=== PATIENT | female | born 1975 | race Caucasian/White ===

== ENCOUNTER 2017-03-10 13:23 | Emergency (ER) | payer OTHER ==
[2017-03-10 13:27] VITALS: BP 137/79; PULSE 96; BMI 28.3
[2017-03-10] MEDS ORDERED: SULFAMETHOXAZOLE/TRIMETHOPRIM 800MG/160MG D.S. TABLET PO ONE (14:28)
--- NOTE | 2017-03-10 14:29 | PDOC ---
History of Present Illness - General Chief Complaint: Rash Stated Complaint: RASH Time Seen by Provider: 03/10/17 14:14 History Source: Patient Exam Limitations: No Limitations - History of Present Illness Initial Comments: 03/10/17 14:42 Patient came for evaluation of tender weeping lesions to pubis area. States suffers from frequent episodes of folliculitis and feels this episode is spreading. Has had multiple infections, dermatitis in the past and has also needed admission for IV antibiotics. Feels is probably been infected with MRSA type infections multiple times. Has recently taken one course of amoxicillin for dental work. Denies fever, but states rash is becoming more extensive and painful. 03/10/17 14:45 Timing/Duration: reports: constant, changing over time, getting worse Respiratory Risk Factors: reports: no cause identified Modifying Factors: improves with: scratching Associated Symptoms: reports: blisters, change in skin texture, swelling/mass/ lumps. denies: fever Past History - Travel Traveled outside of the country in the last 30 days: No Close contact w/someone who was outside of country & ill: No - Past Medical History Allergies/Adverse Reactions: Allergies Allergy/AdvReac Type Severity Reaction Status Date / Time ketorolac tromethamine Allergy Intermediate hives/vomit Verified 03/10/17 13:27 [From Toradol] prochlorperazine edisylate Allergy Mild hives/lock Verified 03/10/17 13:27 [From Compazine] jaw prochlorperazine maleate Allergy Mild hives/lock Verified 03/10/17 13:27 [From Compazine] jaw tramadol Allergy "HIVES AND Verified 03/10/17 13:27 PROFUSE VOMITING" Home Medications: Ambulatory Orders Alprazolam [Xanax] 1 mg PO BID 06/27/15 Pregabalin [Lyrica -] 300 mg PO BID 06/27/15 Quetiapine Fumarate [Seroquel -] 50 mg PO HS 06/27/15 Zolpidem Tartrate [Ambien] 10 mg PO HS 06/27/15 Metoprolol Succinate [Toprol XL -] 25 mg PO DAILY 06/30/15 Budesonide/Formeterol Fumarate [SYMBICORT 160/4.5mcg -] 2 puff IH BID inhaler 07/08/15 Sennosides [Senna -] 1 tab PO BID tablet 07/08/15 Oxycodone Sr [Oxycontin] 20 mg PO BID 08/20/15 Thiamine HCl [Vitamin B1 -] 100 mg PO HS #30 tablet 09/01/15 Albuterol Sulfate Inhaler - [Ventolin HFA Inhaler -] 1 - 2 inh PO Q4H PRN Tiotropium [place] [Spiriva] 1 inh IH DAILY 10/30/15 Methocarbamol [Robaxin -] 500 mg PO TID #21 tablet 11/01/15 Metoclopramide HCl [Reglan] 10 mg PO TID PRN #20 tablet 11/09/15 Acetaminophen 1,000 mg PO Q6H #30 capsule 03/10/17 Sulfamethoxazole/Trimethoprim [Bactrim *Ds*] 1 each PO BID #14 tablet 03/10/17 Anemia: Yes Asthma: Yes Cancer: Yes (Terratoma Tumor age 10y/o) Cardiac Disorders: Yes (Fast Heartbeat on Toprol XL) CVA: No COPD: No CHF: No Dementia: No Diabetes: No GI Disorders: Yes (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) Disorders: Yes (Kidney stone 3 yrs ago) HTN: No Hypercholesterolemia: No Liver Disease: No Psychiatric Problems: Yes (bipolar depression/anxiety) Seizures: No Thyroid Disease: Yes (partial thyroidectomy) - Surgical History Abdominal Surgery: (Benign tumors removed from abdomen as child) Appendectomy: No Cardiac Surgery: No Cholecystectomy: No Lung Surgery: No Neurologic Surgery: No Orthopedic Surgery: (Right done Weds 07/02 and left done 03/23) - Family Disease History Family Disease History: Diabetes: Grandparents, Heart Disease: Grandparents - Immunization History Td Vaccination: Yes TDAP Vaccination: Yes Immunization Up to Date: Yes - Suicide/Smoking/Psychosocial Hx Smoking Status: No Smoking History: Never smoked Have you smoked in the past 12 months: No Number of Cigarettes Smoked Daily: 3 If you are a former smoker, when did you quit?: 06/2015 'Breaking Loose' booklet given: 07/02/15 Hx Alcohol Use: No Drug/Substance Use Hx: No Substance Use Type: None Hx Substance Use Treatment: No Review of Systems - Review of Systems Able to Perform ROS?: Yes Is the patient limited Belarusian proficient: Yes Constitutional: Yes: Symptoms Reported, See HPI, Malaise. No: Fever HEENTM: No: Symptoms Reported Respiratory: No: Symptoms reported Musculoskeletal: No: Symptoms Reported Integumentary: Yes: Symptoms Reported, See HPI, Lesions, Pruritus, Rash Neurological: No: Symptoms reported All Other Systems: Reviewed and Negative *Physical Exam - Vital Signs Last Vital Signs Temp Pulse Resp BP Pulse Ox 96 H 18 137/79 98 03/10/17 13:24 03/10/17 13:24 03/10/17 13:24 03/10/17 13:24 - Physical Exam General Appearance: Yes: Nourished, Appropriately Dressed, Apparent Distress HEENT: positive: SAUL, Normal ENT Inspection, TMs Normal, Pharynx Normal Neck: positive: Supple. negative: Tender, Lymphadenopathy (R), Lymphadenopathy (L) Respiratory/Chest: positive: Lungs Clear, Normal Breath Sounds Cardiovascular: positive: Regular Rate Gastrointestinal/Abdominal: positive: Soft Musculoskeletal: positive: Normal Inspection Extremity: positive: Normal Capillary Refill, Normal Inspection Integumentary: positive: Normal Color, Pale, Other (multiple unroofed maculopapular rashes, consistent with a folliculitis appearance with a secondary infection. 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 We'll treat with Bactrim *DC/Admit/Observation/Transfer Diagnosis at time of Disposition: Folliculitis barbae - Discharge Dispostion Disposition: HOME Condition at time of disposition: Stable Admit: No - Patient Instructions Printed Discharge Instructions: DI for Folliculitis Additional Instructions: Rest, keep cool and dry- avoid strenuous activity or hot /humid environments Less hot showers, no abrasive soaps May use heavy creams like Eucerin or Cetaphil to keep skin moist May apply Aveeno, calamine lotion, [id number] hydrocortisone creams as needed for symptoms May use Benadryl at night for antihistamine, Zyrtec/ Iliana or Claritin for daytime antihistamine use to help with itching Complete all of Bactrim as directed May use bacitracin ointment 3 times a day Followup with PMD in one week if no resolution Make appointment with systems eng for evaluation when possible
[2017-03-10] MEDS ORDERED: SULFAMETHOXAZOLE/TRIMETHOPRIM 800MG/160MG D.S. TABLET ONE (14:37)
== END 2017-03-10 14:51 | disposition home or self-care (01) ==
LOC: JERFT 13:23
DX: L73.8 Other specified follicular disorders (principal); J45.909 Unspecified asthma, uncomplicated; D64.9 Anemia, unspecified; Z87.891 Personal history of nicotine dependence; Z87.442 Personal history of urinary calculi
CPT/HCPCS: 99281-25

== ENCOUNTER 2017-06-27 20:18 | Emergency (ER) | payer OTHER ==
[2017-06-27 20:48] VITALS: BP 123/60; PULSE 88; TEMP 98.2; BMI 25.8
--- NOTE | 2017-06-27 20:50 | PDOC ---
Rapid Medical Evaluation Chief Complaint: Injury Medical Evaluation: Allergies Allergy/AdvReac Type Severity Reaction Status Date / Time ketorolac tromethamine Allergy Intermediate hives/vomit Verified 03/10/17 13:27 [From Toradol] prochlorperazine edisylate Allergy Mild hives/lock Verified 03/10/17 13:27 [From Compazine] jaw prochlorperazine maleate Allergy Mild hives/lock Verified 03/10/17 13:27 [From Compazine] jaw tramadol Allergy "HIVES AND Verified 03/10/17 13:27 PROFUSE VOMITING" Vital Signs Temp Pulse Resp BP Pulse Ox 98.2 F 88 20 123/60 96 06/27/17 20:46 06/27/17 20:46 06/27/17 20:46 06/27/17 20:46 06/27/17 20:46 06/27/17 20:49 I have performed a brief in-person evaluation of this patient. The patient presents with a chief complaint of: grandchild "jumped on ankle", R ankle pain Pertinent physical exam findings: no swelling I have ordered the following: R ankle x-ray The patient will proceed to the ED for further evaluation. Discharge Disposition - Diagnosis Right ankle pain - Referrals - Patient Instructions - Post Discharge Activity
--- NOTE | 2017-06-27 21:03 | PDOC ---
History of Present Illness - General Chief Complaint: Injury Stated Complaint: ANKLE/FOOT PAIN Time Seen by Provider: 06/27/17 20:50 History Source: Patient Exam Limitations: No Limitations - History of Present Illness Initial Comments: 06/27/17 21:11 Best Contact: Pmhx: Asthma, COPD, RA, fibromyalgia, neuropathy Pshx: 11 years old: Teratoma-ectomy, 22 years old: ONUR Allergies: Tramadol, Compazine, Toradol/hives 42-year-old female presents to the emergency department complaining of right lateral ankle pain. Patient states her 3-year-old daughter was jumping and landed on her right ankle causing her to invert her foot. Pain is described as 6 /10 dull nonradiating intermittent discomfort. Patient states she took Tylenol just prior to coming to the emergency department which helped the pain. The pain is exacerbated on weight-bear. Patient denies head injuries, neck or back pains, knee pains, foot pain, extremity numbness or tingling sensation. Occurred: reports: just prior to arrival Past History - Past Medical History Allergies/Adverse Reactions: Allergies Allergy/AdvReac Type Severity Reaction Status Date / Time ketorolac tromethamine Allergy Intermediate hives/vomit Verified 03/10/17 13:27 [From Toradol] prochlorperazine edisylate Allergy Mild hives/lock Verified 03/10/17 13:27 [From Compazine] jaw prochlorperazine maleate Allergy Mild hives/lock Verified 03/10/17 13:27 [From Compazine] jaw tramadol Allergy "HIVES AND Verified 03/10/17 13:27 PROFUSE VOMITING" Home Medications: Ambulatory Orders Pregabalin [Lyrica -] 300 mg PO BID 06/27/15 Quetiapine Fumarate [Seroquel -] 50 mg PO HS 06/27/15 oxyCODONE SR [Oxycontin] 20 mg PO BID 08/20/15 Thiamine HCl [Vitamin B1 -] 100 mg PO HS #30 tablet 09/01/15 Albuterol Sulfate Inhaler - [Ventolin HFA Inhaler -] 1 - 2 inh PO Q4H PRN Tiotropium [place] [Spiriva] 1 inh IH DAILY 10/30/15 Anemia: Yes Asthma: Yes Cancer: Yes (Terratoma Tumor age 10y/o) Cardiac Disorders: Yes (Fast Heartbeat on Toprol XL) CVA: No COPD: No CHF: No Dementia: No Diabetes: No GI Disorders: Yes (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) Disorders: Yes (Kidney stone 3 yrs ago) HTN: No Hypercholesterolemia: No Liver Disease: No Psychiatric Problems: Yes (bipolar depression/anxiety) Seizures: No Thyroid Disease: Yes (partial thyroidectomy) - Surgical History Abdominal Surgery: (Benign tumors removed from abdomen as child) Appendectomy: No Cardiac Surgery: No Cholecystectomy: No Lung Surgery: No Neurologic Surgery: No Orthopedic Surgery: (Right done 07/02 and left done 03/23) - Family Disease History Family Disease History: Diabetes: Grandparents, Heart Disease: Grandparents - Immunization History Td Vaccination: Yes TDAP Vaccination: Yes Immunization Up to Date: Yes - Suicide/Smoking/Psychosocial Hx Smoking Status: No Smoking History: Never smoked Have you smoked in the past 12 months: No Number of Cigarettes Smoked Daily: 3 If you are a former smoker, when did you quit?: 06/2015 Information on smoking cessation initiated: No 'Breaking Loose' booklet given: 07/02/15 Hx Alcohol Use: No Drug/Substance Use Hx: No Substance Use Type: None Hx Substance Use Treatment: No Review of Systems - Review of Systems Able to Perform ROS?: Yes Comments:: 06/27/17 21:14 CONSTITUTIONAL: MUSCULOSKELETAL: Absent: myalgia, arthralgia, joint swelling SKIN: Absent: rash, itching, pallor Right ankle +pain to lat malleolus neg ext numbness/tingling sensation Right knee neg pain Is the patient limited Chinese proficient: No *Physical Exam - Vital Signs Last Vital Signs Temp Pulse Resp BP Pulse Ox 98.2 F 88 20 123/60 96 06/27/17 20:46 06/27/17 20:46 06/27/17 20:46 06/27/17 20:46 06/27/17 20:46 - Physical Exam Comments: 06/27/17 21:14 GENERAL: Well developed, well nourished. Awake and alert. No acute distress. MUSCULOSKELETAL Normal range of motion at all joints. No bony deformities or tenderness. No CVA tenderness. EXTREMITIES: No cyanosis. No clubbing. No edema. No calf tenderness. SKIN: Warm and dry. Normal capillary refill. No rashes. No jaundice. Right ankle: +pain/swelling to lat malleolus 2+dp pulse Decreased R.O.M./pain Achilles intact Right foot 2+ pedal pulse neg obv deformities Neg pain to base of 5th mt Right knee F.R.O.M. neg pain on palp ED Treatment Course - RADIOLOGY Radiograph Interpretation: 06/27/17 21:10 Xray right ankle; 3v neg fx/dislocations Medical Decision Making - Medical Decision Making 06/27/17 21:16 42-year-old female complaining of right lateral ankle pain after her 3-year-old grandchild landed on her right ankle. X-ray: Negative for fracture or dislocation Cook wrap Crutches Advised to follow-up with ortho Patient agree with plan *DC/Admit/Observation/Transfer Diagnosis at time of Disposition: Ankle sprain Qualifiers: Encounter type: initial encounter Involved ligament of ankle: other ligament Laterality: right Qualified Code(s): S93.491A - Sprain of other ligament of right ankle, initial encounter - Discharge Dispostion Disposition: HOME Condition at time of disposition: Stable Admit: No - Referrals Referrals: Tomer Pastor MD [Staff Physician] - - Patient Instructions Printed Discharge Instructions: DI for Ankle Sprain Additional Instructions: Ice; 20 mins on alternating with 20 mins off for 48 hours while awake. Rest Elevate Follow up with your orthopedic surgeon or the one listed on the discharge form. Return to the ER for severe/persistent/worsening symptoms, extremity numbness/ tingling sensation. - Post Discharge Activity
== END 2017-06-27 21:33 | disposition home or self-care (01) ==
LOC: JERFT 20:18
DX: S93.491A Sprain of other ligament of right ankle, initial encounter (principal); W50.0XXA Accidental hit or strike by another person, initial encounter; Y93.89 Activity, other specified; Y92.038 Other place in apartment as the place of occurrence of the external cause; J45.909 Unspecified asthma, uncomplicated; J44.9 Chronic obstructive pulmonary disease, unspecified; M06.9 Rheumatoid arthritis, unspecified; M79.7 Fibromyalgia
CPT/HCPCS: 73610-TC-RT-FY; 73630-TC-RT-FY; 99281-25

== ENCOUNTER 2017-10-22 12:11 | Emergency (ER) | payer OTHER ==
--- NOTE | 2017-10-22 12:56 | PDOC ---
History of Present Illness - General Chief Complaint: Back Pain Stated Complaint: BACK PAIN Time Seen by Provider: 10/22/17 12:25 History Source: Patient Exam Limitations: No Limitations - History of Present Illness Initial Comments: 10/22/17 16:04 Patient is a 42-year-old female with past medical history of benign teratomas, kidney stones, bipolar disorder, anxiety, who presents to the emergency department today complaining of left-sided flank and back pain. Patient states that she woke up with increased pain to her left side. She is tried taking Tylenol at home with little relief. She states that it hurts to walk or sit up straight. Denies fevers, chills, shortness of breath, difficulty breathing, chest pain, nausea, vomiting and diarrhea, IV drug use. Pt. also c.o wheezing. States she feels like her COPD is flaring. Denies SOB/ difficulty breathing. Past History - Travel Traveled outside of the country in the last 30 days: No Close contact w/someone who was outside of country & ill: No - Past Medical History Allergies/Adverse Reactions: Allergies Allergy/AdvReac Type Severity Reaction Status Date / Time ketorolac tromethamine Allergy Intermediate hives/vomit Verified 03/10/17 13:27 [From Toradol] prochlorperazine edisylate Allergy Mild hives/lock Verified 03/10/17 13:27 [From Compazine] jaw prochlorperazine maleate Allergy Mild hives/lock Verified 03/10/17 13:27 [From Compazine] jaw tramadol Allergy "HIVES AND Verified 03/10/17 13:27 PROFUSE VOMITING" Home Medications: Ambulatory Orders Pregabalin [Lyrica -] 300 mg PO BID 06/27/15 Quetiapine Fumarate [Seroquel -] 50 mg PO HS 06/27/15 oxyCODONE SR [Oxycontin] 20 mg PO BID 08/20/15 Thiamine HCl [Vitamin B1 -] 100 mg PO HS #30 tablet 09/01/15 Albuterol Sulfate Inhaler - [Ventolin HFA Inhaler -] 1 - 2 inh PO Q4H PRN Tiotropium [place] [Spiriva] 1 inh IH DAILY 10/30/15 predniSONE [Deltasone -] 40 mg PO DAILY #8 tablet 06/16/18 Anemia: Yes Asthma: Yes Cancer: Yes (Terratoma Tumor age 10y/o) Cardiac Disorders: Yes (Fast Heartbeat on Toprol XL) CVA: No COPD: No CHF: No Dementia: No Diabetes: No GI Disorders: Yes (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) Disorders: Yes (Kidney stone 3 yrs ago) HTN: No Hypercholesterolemia: No Liver Disease: No Psychiatric Problems: Yes (bipolar depression/anxiety) Seizures: No Thyroid Disease: Yes (partial thyroidectomy) - Surgical History Abdominal Surgery: (Benign tumors removed from abdomen as child) Appendectomy: No Cardiac Surgery: No Cholecystectomy: No Lung Surgery: No Neurologic Surgery: No Orthopedic Surgery: (Right done 07/02 and left done 03/23) - Family Disease History Family Disease History: Diabetes: Grandparents, Heart Disease: Grandparents - Immunization History Td Vaccination: Yes TDAP Vaccination: Yes Immunization Up to Date: Yes - Suicide/Smoking/Psychosocial Hx Smoking Status: No Smoking History: Former smoker Have you smoked in the past 12 months: Yes Number of Cigarettes Smoked Daily: 3 If you are a former smoker, when did you quit?: t-14 Information on smoking cessation initiated: No 'Breaking Loose' booklet given: 07/02/15 Hx Alcohol Use: No Drug/Substance Use Hx: Yes (ger) Substance Use Type: None Hx Substance Use Treatment: No Review of Systems - Review of Systems Able to Perform ROS?: Yes Comments:: 10/22/17 16:04 CONSTITUTIONAL: Absent: fever, chills, diaphoresis, generalized weakness, malaise, loss of appetite HEENT: Absent: rhinorrhea, nasal congestion, throat pain, throat swelling, difficulty swallowing, mouth swelling, ear pain, eye pain, visual Changes CARDIOVASCULAR: Absent: chest pain, loss of consciousness, palpitations, irregular heart rate, peripheral edema RESPIRATORY: Absent: cough, shortness of breath, dyspnea with exertion, orthopnea, wheezing, stridor, hemoptysis GASTROINTESTINAL: Absent: abdominal pain, abdominal distension, nausea, vomiting, diarrhea, constipation, melena, hematochezia GENITOURINARY: Present: L flank pain Absent: dysuria, frequency, urgency, hesitancy, hematuria , flank pain, genital pain MUSCULOSKELETAL: Present: back pain Absent: myalgia, arthralgia, joint swelling SKIN: Absent: rash, itching, pallor HEMATOLOGIC/IMMUNOLOGIC: Absent: easy bleeding, easy bruising, lymphadenopathy, frequent infections ENDOCRINE: Absent: unexplained weight gain, unexplained weight loss, heat intolerance, cold intolerance NEUROLOGIC: Absent: headache, focal weakness or paresthesias, dizziness, unsteady gait, seizure, mental status changes, bladder or bowel incontinence PSYCHIATRIC: Absent: anxiety, depression, suicidal or homicidal ideation, hallucinations. Is the patient limited Yakut proficient: No *Physical Exam - Vital Signs Last Vital Signs Temp Pulse Resp BP Pulse Ox 98.8 F 91 H 20 110/70 97 10/22/17 12:46 10/22/17 12:46 10/22/17 12:46 10/22/17 12:46 10/22/17 12:46 - Physical Exam Comments: 10/22/17 16:07 GENERAL: Well developed, well nourished. Awake and alert. No acute distress. HEENT: Normocephalic, atraumatic. PERRLA, EOMI. No conjunctival pallor. Sclera are non- icteric. Moist mucous membranes. Oropharynx is clear. NECK: Supple. Full ROM. No JVD. Carotid pulses 2+ and symmetric, without bruits. No thyromegaly. No lymphadenopathy. CARDIOVASCULAR: Regular rate and rhythm. No murmurs, rubs, or gallops. Distal pulses are 2+ and symmetric. PULMONARY: No evidence of respiratory distress. Lungs with scattered expiratory wheezing b/ l. ABDOMINAL: Soft. Non-tender. Non-distended. No rebound or guarding. No organomegaly. Normoactive bowel sounds. MUSCULOSKELETAL CVA tenderness on the L. TTP of the paraspinous muscles on the L at the level of L2-L5 with palpable knot. Also with midline tenderness. Normal range of motion at all joints. EXTREMITIES: No cyanosis. No clubbing. No edema. No calf tenderness. SKIN: Warm and dry. Normal capillary refill. No rashes. No jaundice. NEUROLOGICAL: Alert, awake, appropriate. Cranial nerves 2-12 intact. No deficits to light touch and temperature in face, upper extremities and lower extremities. No motor deficits in the in face, upper extremities and lower extremities. Normoreflexic in the upper and lower extremities. Normal speech. Toes are down- going bilaterally. Gait is normal without ataxia. PSYCHIATRIC: Cooperative. Good eye contact. Appropriate mood and affect. 10/22/17 16:11 ED Treatment Course - LABORATORY CBC & Chemistry Diagram: 10/22/17 13:00 10/22/17 13:00 Medical Decision Making - Medical Decision Making 10/22/17 16:08 Patient is a 42-year-old female who presents to the emergency department today with left flank pain and left back pain for one day. Patient is neurologically intact with no focal deficits. Patient given home dose of Percocet to relieve pain. Given patient's history labs and CT scan were ordered to rule out kidney stones, tumors. Lab work shows no leukocytosis, hemoglobin stable, electrolytes grossly within normal limits. CT scan is negative at this time for kidney stones or any other acute pathology. Patient feels better after Percocet. Patient also with wheezing on exam history of COPD. Chest x-ray today is negative for acute pathology. Patient feels better after DuoNeb's. We will discharge home at this time. Return precautions given. Patient understands all discharge instructions and all questions were answered *DC/Admit/Observation/Transfer Diagnosis at time of Disposition: Wheezing Low back pain Qualifiers: Chronicity: acute Back pain laterality: left Sciatica presence: without sciatica Qualified Code(s): M54.5 - Low back pain - Discharge Dispostion Disposition: HOME Condition at time of disposition: Stable Decision to Admit order: No - Referrals Referrals: Antolin West [Primary Care Provider] - Cristobal Garner MD [Staff Physician] - - Patient Instructions Printed Discharge Instructions: DI for Low Back Pain Additional Instructions: You have low back pain due to a muscle spasm. Please take the prednisone as prescribed. Finish the entire dose even if you feel better. Please take your home muscle relaxer as previously prescribed. Take the medication before you go to bed. Do not drive after taking this medication as it may make you sleepy. You may use warm compresses on your back to help with her symptoms. Please follow-up with your primary care doctor. If your symptoms do not resolve in 3-5 days, follow-up with orthopedics. A referral has been provided for you. Your CT scan was negative today for kidney stones and your lab work was normal. Return to the emergency department if you have worsening back pain, bladder or bowel incontinence, numbness and tingling in her legs, changes in the way you walk, or any new or worsening symptoms. - Post Discharge Activity Forms/Work/School Notes: Back to Work
[2017-10-22] MEDS ORDERED: SODIUM CHLORIDE 1,000 ML IV STA (12:58)
[2017-10-22 13:09] VITALS: BMI 28.3
--- NOTE | 2017-10-22 13:20 | PDOC ---
*Physical Exam - Vital Signs Last Vital Signs Temp Pulse Resp BP Pulse Ox 98.8 F 91 H 20 110/70 97 10/22/17 12:46 10/22/17 12:46 10/22/17 12:46 10/22/17 12:46 10/22/17 12:46 ED Treatment Course - LABORATORY CBC & Chemistry Diagram: 10/22/17 13:00 10/22/17 13:00 - Medications Given in the ED: ED Medications Discontinued Medications Generic Name Dose Route Start Last Admin Trade Name Pierce PRN Reason Stop Dose Admin Oxycodone/Acetaminophen 1 combo 10/22/17 12:57 10/22/17 13:08 Percocet 5/325 - PO 10/22/17 12:58 1 combo ONCE ONE Administration Medical Decision Making - Medical Decision Making 10/22/17 13:20 Pt seen by the Advanced Practice Provider under my direct supervision Ancillary studies reviewed I agree with plan as outlined by the Advanced Practice Provider MARITZA Yanez *DC/Admit/Observation/Transfer Diagnosis at time of Disposition: Low back pain, Wheezing - Discharge Dispostion Disposition: HOME Condition at time of disposition: Stable - Prescriptions Prescriptions: predniSONE [Deltasone -] 40 mg PO DAILY #8 tablet - Referrals Referrals: Cristobal Garner MD [Staff Physician] - Antolin West [Primary Care Provider] - - Patient Instructions Printed Discharge Instructions: DI for Low Back Pain Additional Instructions: You have low back pain due to a muscle spasm. Please take the prednisone as prescribed. Finish the entire dose even if you feel better. Please take your home muscle relaxer as previously prescribed. Take the medication before you go to bed. Do not drive after taking this medication as it may make you sleepy. You may use warm compresses on your back to help with her symptoms. Please follow-up with your primary care doctor. If your symptoms do not resolve in 3-5 days, follow-up with orthopedics. A referral has been provided for you. Your CT scan was negative today for kidney stones and your lab work was normal. Return to the emergency department if you have worsening back pain, bladder or bowel incontinence, numbness and tingling in her legs, changes in the way you walk, or any new or worsening symptoms. - Post Discharge Activity Forms/Work/School Notes: Back to Work
[2017-10-22] MEDS ORDERED: ALBUTEROL SO4 2.5/IPRATROPIUM 0.5 INH SOL 3 ML VIAL.NEB. NEB ONE ×2 (14:03→14:07)
[2017-10-22 14:07] LABS: BASO % 1.2 % (0-2.0); HEMOGLOBIN 13.4 GM/dL (10.7-15.3); LYMPH % 29.2 % (8-40); MCH 31.1 pg (25.7-33.7); MCHC 34.2 g/dl (32.0-36.0); MEAN CELL VOLUME 90.9 fl (80-96); MEAN PLT VOLUME 9.8 fl (7.5-11.1); MONO % 9.2 % (3.8-10.2); NEUT % 58.4 % (42.8-82.8); PLATELET COUNT 217 K/MM3 (134-434); RBC 4.29 M/mm3 (3.60-5.2); RDW 13.1 % (11.6-15.6); WHITE BLOOD COUNT 7.8 K/mm3 (4.0-10.0)
[2017-10-22 14:21] LABS: INR 1.04 (0.82-1.09); PROTHROMBIN TIME (PATIENT) 11.8 SEC (9.7-13.0)
[2017-10-22 14:26] LABS: URINE APPEARANCE CLOUDY; URINE BILIRUBIN NEGATIVE (<2.0 mg/dL); URINE COLOR YELLOW; URINE GLUCOSE (UA) NEGATIVE (NEGATIVE); URINE KETONE NEGATIVE (NEGATIVE); URINE LEUK ESTERASE NEGATIVE (NEGATIVE); URINE NITRITE NEGATIVE (NEGATIVE); URINE PROTEIN NEGATIVE (NEGATIVE); URINE UROBILINOGEN NEGATIVE mg/dL (0.2-1.0)
[2017-10-22 14:33] LABS: ALBUMIN 3.6 g/dl (3.4-5.0); ALK PHOS 95 U/L (45-117); ANION GAP 3 (8-16); BILIRUBIN,TOTAL 0.5 mg/dL (0.2-1.0); BLOOD UREA NITROGEN 17 mg/dL (7-18); CALCIUM 8.4 mg/dL (8.5-10.1); CHLORIDE 111 mmol/L (98-107); CO2 27 mmol/L (21-32); CREATININE 0.7 mg/dL (0.55-1.02); GLUCOSE,RANDOM 84 mg/dL (74-106); POTASSIUM 4.3 mmol/L (3.5-5.1); SGOT/AST 25 U/L (15-37); SGPT/ALT 30 U/L (12-78); SODIUM 141 mmol/L (136-145)
[2017-10-22] MEDS ORDERED: ONDANSETRON *ODT* 4 MG TABLET SL ONE (14:37)
[2017-10-22 14:38] LABS: EPI CELLS MODERATE /HPF (FEW); URINE BACTERIA RARE /hpf (NONE SEEN); URINE MUCUS RARE
[2017-10-22] MEDS ORDERED: ONDANSETRON *ODT* 4 MG TABLET ONE (14:51)
[2017-10-22] MEDS ORDERED: predniSONE 20 MG TABLET (UD) PO ONE (16:14)
[2017-10-22 16:19] VITALS: BP 104/72; PULSE 86; TEMP 98.1
[2017-10-22] MEDS ORDERED: predniSONE 20 MG TABLET (UD) ONE (16:24)
== END 2017-10-22 16:22 | disposition home or self-care (01) ==
LOC: JER 12:11
PROC: 3E0337Z Introduction of Electrolytic and Water Balance Substance into Peripheral Vein, Percutaneous Approach (ICD-10-PCS; principal; 2017-10-22)
PROC: 3E0F7GC Introduction of Other Therapeutic Substance into Respiratory Tract, Via Natural or Artificial Opening (ICD-10-PCS; 2017-10-22)
DX: M54.5 Low back pain (principal); J44.9 Chronic obstructive pulmonary disease, unspecified; F31.9 Bipolar disorder, unspecified; F41.9 Anxiety disorder, unspecified; Z87.19 Personal history of other diseases of the digestive system; Z86.79 Personal history of other diseases of the circulatory system
CPT/HCPCS: 36415; 71046-TC-FY; 74176; 80053; 81003; 81015; 85025; 85610; 87086; 94640; 96360; 99284-25; J7030; J7620; Q0162

== ENCOUNTER 2019-12-06 05:14 | Day surgery (SDC) | payer OTHER ==
[2019-11-29 14:22] VITALS: BMI 31.4
[2019-12-06 09:54] VITALS: BP 118/71; PULSE 77; TEMP 97.7
--- NOTE | 2019-12-07 17:40 | PATH ---
Surgical Pathology Report Patient Name: KATE SILVER [facility]. Rec. #: [id number] /Age/Gender: 1975 (Age: 44) / F Account: [id number] Location: [facility]-ENDOSCOPY Taken: 12/06/2019 Received: 12/06/2019 Reported: 12/07/2019 Physicians: Cristobal Manjarrez M.D. Specimen(s) Received A: DUODENUM B: STOMACH C: DISTAL ESOPHAGUS Clinical History Right upper quadrant pain, n/v, dysphagia Postoperative diagnosis: Hiatal hernia, gastritis Final Diagnosis A. DUODENUM, BIOPSY: DUODENAL MUCOSA WITHOUT SIGNIFICANT PATHOLOGIC FINDINGS. B. STOMACH, BIOPSY: GASTRIC OXYNTIC MUCOSA WITH MILD CHRONIC GASTRITIS. IMMUNOHISTOCHEMICAL STAIN FOR H. PYLORI IS NEGATIVE. C. DISTAL ESOPHAGUS, BIOPSY: SQUAMOCOLUMNAR MUCOSA WITH MILD CHRONIC INFLAMMATION AND CHANGES OF MILD REFLUX ESOPHAGITIS. NO INTESTINAL METAPLASIA OR DYSPLASIA IDENTIFIED. Positive and negative controls (internal if applicable) show appropriate results. Electronically Signed Reina Perez M.D. Gross Description A. Received in formalin, labeled "duodenum" are 2 pineda, irregular portions of soft tissue measuring 0.2 and 0.4 cm. in greatest dimension. The specimens are submitted in toto in one cassette. B. Received in formalin, labeled "stomach" are 2 pineda, irregular portions of soft tissue measuring 0.2 and 0.4 cm. in greatest dimension. The specimens are submitted in toto in one cassette. C. Received in formalin, labeled "distal esophagus" is a pineda, irregular portion of soft tissue measuring 0.2 cm. in greatest dimension. The specimen is submitted in toto in one cassette. MLSZ/12/06/2019 sanml/12/06/2019
== END 2019-12-06 10:00 | disposition home or self-care (01) ==
LOC: JASU-ENDO 05:14
PROVIDERS: ATTEND Internal Medicine Gastroenterology
PROC: 0DB68ZX Excision of Stomach, Via Natural or Artificial Opening Endoscopic, Diagnostic (ICD-10-PCS; 2019-12-06)
PROC: 0DB38ZX Excision of Lower Esophagus, Via Natural or Artificial Opening Endoscopic, Diagnostic (ICD-10-PCS; 2019-12-06)
PROC: 0DB98ZX Excision of Duodenum, Via Natural or Artificial Opening Endoscopic, Diagnostic (ICD-10-PCS; principal; 2019-12-06 08:00)
DX: K29.50 Unspecified chronic gastritis without bleeding (principal); K44.9 Diaphragmatic hernia without obstruction or gangrene; K21.0 Gastro-esophageal reflux disease with esophagitis
CPT/HCPCS: 88305-TC; 88342-TC

== ENCOUNTER 2022-01-22 08:13 | Day surgery (SDC) | payer OTHER ==
[2022-01-19 16:45] VITALS: BMI 35.2
[2022-01-22] MEDS ORDERED: MIDAZOLAM HCL 2 MG/2 ML SINGLE DOSE VIAL ONE (10:15)
[2022-01-22] MEDS ORDERED: ACETAMINOPHEN 325 MG TABLET (FP) PO PRN (10:24)
[2022-01-22] MEDS ORDERED: ONDANSETRON 4 MG/2 ML VIAL IVPUSH PRN (10:24)
[2022-01-22] MEDS ORDERED: oxyCODONE HCL 5 MG TABLET PO PRN (10:24)
[2022-01-22] MEDS ORDERED: LACTATED RINGERS SOLUTION 1,000 ML IV SCH (10:30)
[2022-01-22] MEDS ORDERED: BUPIVACAINE HCL/PF 2.5 MG/ML - 30 ML VIAL IJ ONE (10:32)
[2022-01-22] MEDS ORDERED: ceFAZolin SODIUM 1 GM VIAL ONE (10:46)
[2022-01-22] MEDS ORDERED: DEXAMETHASONE SOD PHOSPHATE 4 MG/1 ML VIAL ONE (10:50)
[2022-01-22] MEDS ORDERED: ONDANSETRON 4 MG/2 ML VIAL ONE (10:50)
[2022-01-22] MEDS ORDERED: FENTANYL CITRATE/PF 50 MCG/ML VIAL ONE ×4 (11:31→11:54)
[2022-01-22] MEDS ORDERED: ACETAMINOPHEN INJECTION 100 ML IVPB ONE (11:32)
[2022-01-22] MEDS ORDERED: ACETAMINOPHEN 1000 MG/100 ML BAG IVPB PRN (11:34)
[2022-01-22] MEDS ORDERED: oxyCODONE HCL 5 MG TABLET PO ONE (11:52)
[2022-01-22 12:12] VITALS: TEMP 97.8
[2022-01-22 12:50] VITALS: RESP 16
[2022-01-22] MEDS ORDERED: oxyCODONE HCL 5 MG TABLET ONE (12:58)
[2022-01-22 13:12] VITALS: BP 124/82; PULSE 78
== END 2022-01-22 14:25 | disposition home or self-care (01) ==
LOC: FASU 08:13
PROVIDERS: ATTEND Orthopaedic Surgery
PROC: 0SBC4ZZ Excision of Right Knee Joint, Percutaneous Endoscopic Approach (ICD-10-PCS; principal; 2022-01-22 11:01)
DX: S83.241A Other tear of medial meniscus, current injury, right knee, initial encounter (principal); S83.281A Other tear of lateral meniscus, current injury, right knee, initial encounter; S83.8X1A Sprain of other specified parts of right knee, initial encounter; M65.861 Other synovitis and tenosynovitis, right lower leg; X58.XXXA Exposure to other specified factors, initial encounter; Y93.9 Activity, unspecified; Y92.9 Unspecified place or not applicable
CPT/HCPCS: 94760

== ENCOUNTER 2023-01-13 07:34 | Day surgery (SDC) | payer OTHER ==
[2023-01-11 12:43] VITALS: BMI 38.2
[2023-01-13] MEDS ORDERED: DEXAMETHASONE SOD PHOSPHATE 4 MG/1 ML VIAL ONE (09:45)
[2023-01-13] MEDS ORDERED: KETOROLAC TROMETHAMINE 30 MG/1 ML VIAL ONE (09:45)
[2023-01-13] MEDS ORDERED: ONDANSETRON 4 MG/2 ML VIAL ONE (09:45)
[2023-01-13] MEDS ORDERED: ceFAZolin SODIUM 1 GM VIAL ONE (09:45)
[2023-01-13] MEDS ORDERED: PROPOFOL 20 ML ONE ×2 (09:47→10:26)
[2023-01-13] MEDS ORDERED: MIDAZOLAM HCL 2 MG/2 ML SINGLE DOSE VIAL ONE ×2 (09:50→10:09)
[2023-01-13] MEDS ORDERED: BUPIVACAINE HCL/PF 2.5 MG/ML - 30 ML VIAL IJ ONE (09:54)
[2023-01-13] MEDS ORDERED: EPINEPHrine 1:1,000 1,000 MCG/ML ML ONE (09:54)
[2023-01-13] MEDS ORDERED: ALBUTEROL SO4 HFA INHALER IH ONE (09:56)
[2023-01-13] MEDS ORDERED: ACETAMINOPHEN INJECTION 100 ML IVPB ONE (10:02)
[2023-01-13] MEDS ORDERED: METOPROLOL TARTRATE 5 MG/5 ML VIAL ONE (10:38)
[2023-01-13] MEDS ORDERED: FENTANYL CITRATE/PF 50 MCG/ML VIAL ONE (10:58)
[2023-01-13] MEDS ORDERED: oxyCODONE HCL 5 MG TABLET PO PRN (11:09)
[2023-01-13] MEDS ORDERED: HYDROmorphone HCL/PF 1 MG/ML VIAL ONE ×3 (11:09→13:17)
[2023-01-13] MEDS ORDERED: PROMETHAZINE HCL 25 MG/1 ML VIAL IVPB PRN (11:09)
[2023-01-13] MEDS ORDERED: ONDANSETRON 4 MG/2 ML VIAL IVPUSH PRN (11:09)
[2023-01-13] MEDS: HYDROmorphone HCl 2 MG/ML VIAL IVPUSH PRN ×3 (11:12→11:42)
[2023-01-13] MEDS ORDERED: LACTATED RINGERS SOLUTION 1,000 ML IV SCH (11:15)
[2023-01-13] MEDS ORDERED: oxyCODONE HCL 5 MG TABLET ONE (12:18)
[2023-01-13 12:36] VITALS: TEMP 96.8
[2023-01-13 12:56] VITALS: BP 129/87; PULSE 68; RESP 16
== END 2023-01-13 13:25 | disposition home or self-care (01) ==
LOC: FASU 07:34
PROVIDERS: ATTEND Orthopaedic Surgery
PROC: 0SBC4ZZ Excision of Right Knee Joint, Percutaneous Endoscopic Approach (ICD-10-PCS; principal; 2023-01-13 10:35)
DX: S83.241A Other tear of medial meniscus, current injury, right knee, initial encounter (principal); S83.281A Other tear of lateral meniscus, current injury, right knee, initial encounter; S83.8X1A Sprain of other specified parts of right knee, initial encounter; M65.861 Other synovitis and tenosynovitis, right lower leg; X58.XXXA Exposure to other specified factors, initial encounter; Y93.9 Activity, unspecified; Y92.9 Unspecified place or not applicable
CPT/HCPCS: 94760